=== PATIENT | male | born 1990 | race Caucasian/White ===

== ENCOUNTER 2016-05-09 12:13 | Emergency (ER) | payer SELFPAY ==
[2016-05-09] MEDS ORDERED: IBUPROFEN 800 MG TABLET ONE (13:21)
--- NOTE | 2016-05-09 13:45 | RAD ---
HISTORY: Work injury. Initial encounter. 450 pound bale of material rolled onto patient's knee. COMPARISON: None. TECHNIQUE: four views of Right knee. FINDINGS: Bones: No fracture or dislocation. Joints: Normal. Soft tissue: No joint effusion. IMPRESSION: No fracture or dislocation.
== END 2016-05-09 14:18 | disposition home or self-care (01) ==
LOC: ED 12:13
DX: S89.91XA Unspecified injury of right lower leg, initial encounter (principal); W20.8XXA Other cause of strike by thrown, projected or falling object, initial encounter; Y93.H3 Activity, building and construction; Y92.69 Other specified industrial and construction area as the place of occurrence of the external cause; Y99.0 Civilian activity done for income or pay
CPT/HCPCS: 73564; 99283 ×2; A9270